=== PATIENT | female | born 1985 | race Caucasian/White ===

== ENCOUNTER 2017-05-24 17:43 | Inpatient (IN) | payer MEDICAID, OTHER ==
[~2017-05-24] VITALS: Ht 170.2 cm; Wt 106.8 kg
[2017-05-24 20:20] VITALS: BP 111/66
[2017-05-24] MEDS ORDERED: NS IV 1000 ML 1,000 ML ONE (21:07)
[2017-05-24] MEDS: NS IV 1000 ML 1,000 ML IV SCH (21:43)
[2017-05-24] MEDS: CLINDAMYCIN INJECTION 600 MG in NS (IVPB) 50 ML IV SCH (21:43)
[2017-05-24] MEDS: ACETAMINOPHEN 500 MG TAB (TYLENOL) PO PRN (21:52)
[2017-05-25 00:28] VITALS: BP 106/50
[2017-05-25 04:20] VITALS: BP 102/56
[2017-05-25] MEDS: CLINDAMYCIN INJECTION 600 MG in NS (IVPB) 50 ML IV SCH ×3 (05:49→21:27)
[2017-05-25 06:00] LABS: BASOPHILS % (AUTO) 0 % (0-10); EOSINOPHILS # (AUTO) 0.1 10^3/uL (0.0-0.3); EOSINOPHILS % (AUTO) 2 % (0-10); LYMPHOCYTES # (AUTO) 1.5 X 10^3 (1.0-4.0); LYMPHOCYTES % (AUTO) 19 % (12-44); MEAN CORPUSCULAR HEMOGLOBIN 30 PG (25-34); MEAN CORPUSCULAR HGB CONC 34 G/DL (32-36); MEAN CORPUSCULAR VOLUME 88 FL (80-99); MEAN PLATELET VOLUME 9.7 FL (7.4-10.4); MONOCYTES # (AUTO) 0.6 X 10^3 (0.0-1.0); MONOCYTES % (AUTO) 7 % (0-12); NEUTROPHILS # (AUTO) 5.7 X 10^3 (1.8-7.8); NEUTROPHILS % (AUTO) 72 % (42-75); PLATELET COUNT 256 10^3/uL (130-400); RED BLOOD COUNT 3.82 10^6/uL (4.35-5.85); RED CELL DISTRIBUTION WIDTH 13.2 % (10.0-14.5); WHITE BLOOD COUNT 7.9 10^3/uL (4.3-11.0)
[2017-05-25 06:04] LABS: ANION GAP 11 MMOL/L (5-14); BLOOD UREA NITROGEN 8 MG/DL (7-18); BUN/CREATININE RATIO 12; CALCIUM 8.7 MG/DL (8.5-10.1); CARBON DIOXIDE 19 MMOL/L (21-32); CHLORIDE 108 MMOL/L (98-107); CREATININE SERUM 0.66 MG/DL (0.60-1.30); GFR ESTIMATED > 60; GLUCOSE 109 MG/DL (70-105); POTASSIUM 3.4 MMOL/L (3.6-5.0); SODIUM 138 MMOL/L (135-145)
[2017-05-25] MEDS ORDERED: CATHETER FLUSH 10 ML SYR IV PRN (07:00)
[2017-05-25 08:23] VITALS: BP 101/64
--- NOTE | 2017-05-25 09:17 | Consultation ---
History of Present Illness History of Present Illness Patient Consulted On(arielle/time) 05/25/17 09:09 Date Seen by Provider: May 25, 2017 Time Seen by Provider: 08:15 Reason for Visit: bilateral lower extremity lymphedema, right lower extremity cellulitis History of Present Illness This 32-year-old is approximately 17 weeks and 1 day gestation and admitted to the emergency department last night for suspected cellulitis of the right lower extremity. The patient has a history of lymphedema of unexplained origin since age 14 that gets significantly worse with . The patient has had 4 previous successful pregnancies and one spontaneous miscarriage. All of her children were born vaginally and all pregnancies resulted in worsening lymphedema but no complications otherwise. This morning she has no concerns about the . She reports she can feel minor movements. She denies any cramping bleeding or spotting. She denies any morning sickness. Allergies and Home Medications Allergies Coded Allergies: Penicillins (Verified Allergy, Unknown, 05/24/17) Sulfa (Sulfonamide Antibiotics) (Verified Allergy, Unknown, 05/24/17) cefaclor (Verified Allergy, Unknown, 05/24/17) Past Tmcfqis-Yvupga-Txpdgw Hx Patient Social History Alcohol Use: Denies Use Recreational Drug Use: No Smoking Status: Current Everyday Smoker Type Used: Cigarettes Recent Foreign Travel: No Contact w/Someone Who Travel: No Recent Infectious Disease Expo: No Seasonal Allergies Seasonal Allergies: No Surgeries History of Surgeries: Yes (CLEFT PALATE REPAIR, RIGHT EAR DRUM PATCH, LEFT EAR TUBES, TONSILLECTOMY) Respiratory History of Respiratory Disorde: Yes Respiratory Disorders: Pneumonia Cardiovascular History of Cardiac Disorders: No Neurological History of Neurological Disord: No Reproductive System : Yes Female Reproductive Disorders: Denies Genitourinary History of Genitourinary Disor: No Gastrointestinal History of Gastrointestinal Di: No Musculoskeletal History of Musculoskeletal Dis: No Endocrine History of Endocrine Disorders: No HEENT History of HEENT Disorders: Yes Loss of Vision: Left Hearing Impairment: Hard of Hearing Cancer History of Cancer: No Psychosocial History of Psychiatric Problem: No Integumentary History of Skin or Integumenta: Yes (cellulitis/ lymphedema) Blood Transfusions History of Blood Disorders: No Family Medical History Family Medial History: Patient reports no known family medical history. Review of Systems-General Constitutional: see HPI, No diaphoresis, No malaise EENTM: see HPI Respiratory: see HPI, No orthopnea, No phlegm, No stridor Cardiovascular: see HPI Gastrointestinal: see HPI Genitourinary: see HPI : Yes Expected Date of Delivery: Nov 01, 2017 Musculoskeletal: see HPI Skin: see HPI Psychiatric/Neurological: See HPI All Other Systems Reviewed Negative Unless Noted: Yes (Negative excepted noted.) Physical Exam-General Problems Physical Exam Vital Signs Vital Sign - Last 12Hours 05/24/17 20:20 Temp 98.8 Pulse 92 Resp 18 B/P (MAP) 111/66 Pulse Ox 97 O2 Delivery Room Air Capillary Refill : General Appearance: WD/WN HEENT: PERRL/EOMI Cardiovascular: regular rate, rhythm Gastrointestinal: normal bowel sounds, non tender Lymphatic: other (severe lower extremity lymphedema noted bilaterally with some redness in the right lower extremity that is warm to touch. All of this is localized below the knee. 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
[2017-05-25] MEDS ORDERED: PREN-142 PO (11:05)
--- NOTE | 2017-05-25 11:20 | Diagnostic Imaging Report ---
INDICATION: survey. TECHNIQUE: Multiple real-time grayscale images were obtained over the gravid uterus. COMPARISON: None FINDINGS: heart rate is 143 beats per minutes. The placenta is posterior. There is no placenta previa. The cervix is 4.3 cm in length and appears closed. The upper and mid spine are seen. The lower spine is not well seen due to position. There is no ventriculomegaly. The posterior fossa appears unremarkable. The stomach and the bladder are seen. The cord insertion, three-vessel cord, the four-chamber view, and the kidneys are not well seen due to position. Biometrical measurements are as follows: Biparietal 4.09 cm, age 18 weeks 3 days. Head circumference 14.99 cm, age 18 weeks 1 days. Abdominal circumference 12.35 cm, age 18 weeks 0 days. Femur length 2.73 cm, age 18 weeks 3 days. Sonographic estimate age: 18 weeks 2 days. This compares to gestational age of 17 weeks and 1 day based on provided INDU of 11/01/2017, within normal limits. Sonographic estimated date of delivery: 10-24-17. Estimated Weight: 226 gm (+/- 33 gm). LMP percentile: 95%. heart rate: 143 beats per minute. number: 1 of 1. IMPRESSION: Followup within two weeks is suggested to reevaluate the structures not well seen including the four-chamber view, the kidneys, cord insertion, three-vessel cord, and the lower spine. Dictated by: Dictated on workstation # [id number]
[2017-05-25 12:36] VITALS: BP 127/72
--- NOTE | 2017-05-25 12:52 | History & Physical-Hospitalist ---
HPI History of Present Illness: HPI/Chief Complaint The patient is a 32-year-old white female referred to the hospitalist service after a phone call to me from her primary care physician. She reports that she developed lymphedema of her lower extremities at age 14. She has had multiple episodes of lymphangitis. She had been hospitalized in [place] in January with lymphangitis and was found to be at that time. She has been 6 times and has 4 living children. Each brought at least one episode of lymphangitis that required treatment. She and her significant other had moved back to the area recently. She reports that she has always done well with occupational therapy for reduction of lymphedema and then use of compression stockings. She states that welfare has been unwilling to pay for either of these modalities as they considered it to be a cosmetic issue. Her left leg has been much more afflicted than the right. The right leg however is the painful red leg this time. Source: patient Exam Limitations: no limitations Date Seen 05/25/17 Time Seen by Provider: 12:46 Attending Physician Rajan Perez MD PCP Torres Chance DO Referring Physician Date of Admission May 24, 2017 at 20:08 Home Medications & Allergies Home Medications Reviewed patient Home Medication Reconciliation Form Allergies Allergies Coded Allergies Penicillins (Verified Allergy, Unknown, 05/24/17) Sulfa (Sulfonamide Antibiotics) (Verified Allergy, Unknown, 05/24/17) cefaclor (Verified Allergy, Unknown, 05/24/17) Past Zujbupu-Ueellr-Pdoojn Hx Patient Social History Alcohol Use: Denies Use Recreational Drug Use: No Smoking Status: Current Everyday Smoker Type Used: Cigarettes Physical Abuse Screen: No Sexual Abuse: No Recent Foreign Travel: No Contact w/other who traveled: No Recent Infectious Disease Expo: No Seasonal Allergies Seasonal Allergies: No Surgeries Yes (CLEFT PALATE REPAIR, RIGHT EAR DRUM PATCH, LEFT EAR TUBES, TONSILLECTOMY) Respiratory Yes Cardiovascular No Neurological No Reproductive System : Yes Expected Date of Delivery: Nov 01, 2017 Female Reproductive Disorders: Denies Genitourinary No Gastrointestinal No Musculoskeletal No Endocrine History of Endocrine Disorders: No HEENT History of HEENT Disorders: Yes Loss of Vision: Left Hearing Impairment: Hard of Hearing Cancer No Psychosocial History of Psychiatric Problem: No Integumentary History of Skin or Integumenta: Yes (cellulitis/ lymphedema) Blood Transfusions History of Blood Disorders: No Family Medical History Family Hx: Patient reports no known family medical history. Review of Systems Constitutional: see HPI EENTM: no symptoms reported Respiratory: no symptoms reported Cardiovascular: no symptoms reported Gastrointestinal: no symptoms reported Genitourinary: no symptoms reported Musculoskeletal: no symptoms reported Skin: see HPI Physical Exam Physical Exam Vital Signs Vital Sign - Last 12Hours 05/24/17 20:20 Temp 98.8 Pulse 92 Resp 18 B/P (MAP) 111/66 Pulse Ox 97 O2 Delivery Room Air Capillary Refill : General Appearance: Mild Distress Eyes: Bilateral Eye Normal Inspection HEENT: Normal ENT Inspection Neck: Full Range of Motion Respiratory: Chest Non Tender, Lungs Clear, Normal Breath Sounds, No Accessory Muscle Use, No Respiratory Distress Cardiovascular: Regular Rate, Rhythm, No Edema, No Gallop, No JVD, No Murmur, Normal Peripheral Pulses Comments The left leg below the knee is extremely swollen. There is a pendulous portion of the edema above the ankle. The leg does not appear to be red or warm. The right leg is much more normal in size. There is erythema and tenderness. This was marked with an indelible marker last night and the erythema is receding from the marker lines. Results Results/Procedures Lab Laboratory Tests 05/25/17 05:25 Assessment/Plan Admission Diagnosis Chronic lymphedema. 2.recurrent lymphangitis. 3.17 weeks' . Assessment and Plan IV antibiotics. She has many reported allergies and it would appear that clindamycin is the best choice at this time. Occupational therapy consult for advice on lymphedema management. protective services social worker consult as a patient advocate with welfare Clinical Quality Measures DVT/VTE Risk/Contraindication: Risk Factor Score Per Nursin RFS Level Per Nursing on Admit: 4+=Very High RAJAN PEREZ MD May 25, 2017 12:52
[2017-05-25 15:45] VITALS: BP 120/70
[2017-05-25] MEDS: NS IV 1000 ML 1,000 ML IV SCH (16:25)
--- NOTE | 2017-05-25 17:46 | Occ Therapy Progress Note ---
Therapy Progress Note Order received for OT services in reference to cellulitis/lymphedema about lower extremity. Due to infection, compression not appropriate at this time. We will need to resolve the infection then consider compression in some form. Will follow patient tomorrow. Thank you for this referral. TRACEY Hernandez/L 05/25/2017 5:45 pm DANIELLE MCCAIN OT May 25, 2017 17:46
[2017-05-25 19:48] VITALS: BP 107/63
[2017-05-25] MEDS: ACETAMINOPHEN 500 MG TAB (TYLENOL) PO PRN (21:28)
[2017-05-26] VITALS: BP 133/62
[2017-05-26 04:00] VITALS: BP_SYST 118; BP_SYST 128; BP_DIAS 56; BP_DIAS 65
[2017-05-26] MEDS: CLINDAMYCIN INJECTION 600 MG in NS (IVPB) 50 ML IV SCH (05:31)
[2017-05-26 08:48] VITALS: BP 132/82
[2017-05-26] MEDS ORDERED: CLIN300C11 PO (10:52)
--- NOTE | 2017-05-26 11:12 | Discharge Summary-Hospitalist ---
Diagnosis/Chief Complaint Date of Admission May 24, 2017 at 20:08 Date of Discharge Discharge Date: May 26, 2017 Admission Diagnosis Chronic lymphedema. 2.recurrent lymphangitis. 3.17 weeks' . Discharge Diagnosis Chart Review: No fever Vitals stable Dr. Partida Review: Pt states she has had lymphedema since she was 14yo Pt is with her 6th child. 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 He states that her left leg was completely red when she was admitted Pt states she would like to DC Pt was informed that we will start her with some wide VERONICA wraps to help with the lymphedema during her . Pt states that she was two weeks away from receiving her stockings and Medicare told her they would not pay. Pt confirms pharmacy as [facility] in [place], [place] [employer], [place], improved right leg no longer even pink Plan: UDS Wide VERONICA wraps with Curlex Follow up with Dr. Enriquez tomorrow 05/27 Scribed by Lisa Rizzo under the direct supervision of Dr. Jackson. (1) Cellulitis and abscess of right lower extremity Status: Acute (2) Lymphedema of extremity Status: Chronic (3) Status: Acute Discharge Summary Discharge Physical Examination Allergies: Coded Allergies: Penicillins (Verified Allergy, Unknown, 05/24/17) Sulfa (Sulfonamide Antibiotics) (Verified Allergy, Unknown, 05/24/17) cefaclor (Verified Allergy, Unknown, 05/24/17) Vitals & I&Os Vital Signs Date Time Temp Pulse Resp B/P (MAP) Pulse Ox O2 Delivery O2 Flow Rate FiO2 05/26/17 08:48 98.4 74 20 132/82 99 Room Air Hospital Course Hospital course: Patient had a brief hospital course she was admitted due to severe right lower extremity cellulitis with complicated chronic lymphedema that is complicated even further due to currently that responded well to clindamycin IV she will be placed on compression therapy along with oral antibiotics with close follow-up with her OB tomorrow and will monitor closely in the meantime. Labs (last 24 hrs) Laboratory Tests 05/25/17 14:13: Glucometer 127H 05/25/17 19:57: Glucometer 133H 05/26/17 05:47: Glucometer 102 05/26/17 10:06: Glucometer 99 05/26/17 11:10: Urine Opiates Screen NEGATIVE, Urine Oxycodone Screen NEGATIVE, Urine Methadone Screen NEGATIVE, Urine Propoxyphene Screen NEGATIVE, Urine Barbiturates Screen NEGATIVE, Ur Tricyclic Antidepressants Screen NEGATIVE, Urine Phencyclidine Screen NEGATIVE, Urine Amphetamines Screen NEGATIVE, Urine Methamphetamines Screen NEGATIVE, Urine Benzodiazepines Screen NEGATIVE, Urine Cocaine Screen NEGATIVE, Urine Cannabinoids Screen NEGATIVE Pending Labs Laboratory Tests 05/26/17 05:47: Glucometer 102 05/26/17 10:06: Glucometer 99 05/26/17 11:10: Urine Opiates Screen NEGATIVE, Urine Oxycodone Screen NEGATIVE, Urine Methadone Screen NEGATIVE, Urine Propoxyphene Screen NEGATIVE, Urine Barbiturates Screen NEGATIVE, Ur Tricyclic Antidepressants Screen NEGATIVE, Urine Phencyclidine Screen NEGATIVE, Urine Amphetamines Screen NEGATIVE, Urine Methamphetamines Screen NEGATIVE, Urine Benzodiazepines Screen NEGATIVE, Urine Cocaine Screen NEGATIVE, Urine Cannabinoids Screen NEGATIVE Discharge Home Medications: Active Scripts Active Clindamycin HCl 300 Mg Capsule 300 Mg PO TID Reported Vitamin Tablet ( Vit No.124/Iron/FA) 1 Each Tablet 1 Each PO DAILY Instructions to patient/family Please see electronic discharge instructions given to patient. Clinical Quality Measures DVT/VTE Risk/Contraindication: Risk Factor Score Per Nursin RFS Level Per Nursing on Admit: 4+=Very High Problem Qualifiers (1) : Weeks of gestation: 30 weeks Qualified Codes: Z3A.30 - 30 weeks gestation of AJ JACKSON DO May 26, 2017 11:11
[2017-05-26 11:25] VITALS: BP 132/82
[2017-05-27] MEDS ORDERED: PRENATAL VITAMIN 1 EA TAB PO SCH (07:00)
== END 2017-05-26 11:25 | disposition home or self-care (01) | DRG 781 ==
LOC: 4TH 20:08
PROVIDERS: ADMIT Internal Medicine; ATTEND Internal Medicine
DX: O99.712 Diseases of the skin and subcutaneous tissue complicating pregnancy, second trimester (principal); L03.115 Cellulitis of right lower limb; I89.0 Lymphedema, not elsewhere classified; O99.332 Smoking (tobacco) complicating pregnancy, second trimester; F17.210 Nicotine dependence, cigarettes, uncomplicated; Q87.0 Congenital malformation syndromes predominantly affecting facial appearance; Z3A.17 17 weeks gestation of pregnancy
CPT/HCPCS: 36415; 76805; 80048; 80306; 82962; 85025

== ENCOUNTER 2017-06-05 18:11 | Emergency (ER) | payer SELFPAY ==
[~2017-06-05] VITALS: Ht 170.2 cm; Wt 106.8 kg
[~2017-06-05 18:11] MED LIST: CLIN300C11 PO; PREN-142 PO
--- NOTE | 2017-06-05 20:25 | ED Integumentary General ---
General Chief Complaint: Skin/Wound Problems Stated Complaint: POSSIBLE CELLULITIS Nursing Triage Note: Patient reports R leg redness starting this morning. patient reports was recenlty discharged with cellulitis Source: patient Exam Limitations: no limitations History of Present Illness Time seen by provider: 20:25 Initial Comments 32-year-old female patient presents to the emergency department with complaints of possible cellulitis to the right lower extremity. Patient is 18 weeks . Patient was admitted to [facility] on 05/24/17 for similar complaints. 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 Patient reports history of lymphedema since the age of 14. Patient is a A2 female. Reports each brought on at least one episode of lymphangitis which required treatment. Patient reports finishing her clindamycin on 05/30/17. Denies fever or chills. Timing/Duration: this morning, getting worse Location: extremities (right lower extremity) Possible Cause: no cause identified Modifying Factors: worse with other (worse with palpation and scratching) Allergies and Home Medications Allergies Coded Allergies: Penicillins (Verified Allergy, Unknown, 05/24/17) Sulfa (Sulfonamide Antibiotics) (Verified Allergy, Unknown, 05/24/17) cefaclor (Verified Allergy, Unknown, 05/24/17) Home Medications Clindamycin HCl 300 Mg Capsule, 300 MG PO TID, #15 Prescribed by: AJ JACKSON on 05/26/17 1052 Clindamycin HCl 300 Mg Capsule, 300 MG PO QID, #28 Ref 0 Prescribed by: SIMEON BATES on 06/05/17 2146 Vit No.124/Iron/FA 1 Each Tablet, 1 EACH PO DAILY, (Reported) Constitutional: No chills, No fever, No malaise Respiratory: No cough, No dyspnea on exertion, No short of breath Cardiovascular: No chest pain, No palpitations, No syncope Gastrointestinal: No abdominal pain, No constipation, No diarrhea, No nausea, No vomiting Genitourinary: No decreased output, No discharge, No dysuria, No frequency, No hematuria, No pain, No other (denies vaginal bleeding) : Yes Musculoskeletal: see HPI Skin: see HPI Psychiatric/Neurological: No Symptoms Reported All Other Systems Reviewed Negative Unless Noted: Yes (Negative excepted noted.) Past Urjebgx-Hjwdyb-Pcqbmc Hx Patient Social History Alcohol Use: Denies Use Recreational Drug Use: No Smoking Status: Current Everyday Smoker Type Used: Cigarettes Recent Foreign Travel: No Contact w/Someone Who Travel: No Recent Infectious Disease Expo: No Physical Abuse: No Sexual Abuse: No Seasonal Allergies Seasonal Allergies: No Surgeries History of Surgeries: Yes (CLEFT PALATE REPAIR, RIGHT EAR DRUM PATCH, LEFT EAR TUBES, TONSILLECTOMY) Respiratory History of Respiratory Disorde: Yes Respiratory Disorders: Pneumonia Cardiovascular History of Cardiac Disorders: No Neurological History of Neurological Disord: No Reproductive System : Yes Hx : 6 Hx Para: 4 Hx Total # of Abortions (Spona: 2 Female Reproductive Disorders: Denies Genitourinary History of Genitourinary Disor: No Gastrointestinal History of Gastrointestinal Di: No Musculoskeletal History of Musculoskeletal Dis: No Endocrine History of Endocrine Disorders: No HEENT History of HEENT Disorders: Yes Loss of Vision: Left Hearing Impairment: Hard of Hearing Cancer History of Cancer: No Psychosocial History of Psychiatric Problem: No Suicide Risk Score: 0 Integumentary History of Skin or Integumenta: Yes (cellulitis/ lymphedema) Blood Transfusions History of Blood Disorders: No Reviewed Nursing Assessment Reviewed/Agree w Nursing PMH: Yes Family Medical History Significant Family History: No Pertinent Family Hx Family Medial History: Patient reports no known family medical history. Physical Exam Vital Signs Vital Sign - Last 12Hours 06/05/17 19:25 Temp 98.2 Pulse 80 Resp 18 B/P (MAP) 118/61 Pulse Ox 99 Capillary Refill : Less Than 3 Seconds General Appearance: WD/WN, no apparent distress HEENT: PERRL/EOMI, pharynx normal Neck: supple, normal inspection Cardiovascular: normal peripheral pulses, regular rate, rhythm, no murmur Respiratory: lungs clear, normal breath sounds, no respiratory distress, no accessory muscle use Gastrointestinal: normal bowel sounds, non tender, soft, No distended Extremities: no calf tenderness, normal capillary refill, other (lymphedema noted of the bilateral lower extremities. Right lower extremity shows slightly raised, erythematous macules from the knee to the mid dorsal foot. No open wounds or drainage noted.) Neurologic/Psychiatric: alert, normal mood/affect, oriented x 3 Skin: normal color, warm/dry, rash (lymphedema noted of the bilateral lower extremities. Right lower extremity shows slightly raised, erythematous macules from the knee to the mid dorsal foot. No open wounds or drainage noted.) Skin Problem Location: lower extremities Skin Problem Character: rash, other (lymphedema noted of the bilateral lower extremities. Right lower extremity shows slightly raised, erythematous macules from the knee to the mid dorsal foot. No open wounds or drainage noted.) Progress/Results/Core Measures Results/Orders Lab Results Laboratory Tests Test 06/05/17 20:57 Range/Units White Blood Count 13.0 H 4.3-11.0 10^3/uL Red Blood Count 4.17 L 4.35-5.85 10^6/uL Hemoglobin 12.2 11.5-16.0 G/DL Hematocrit 37 35-52 % Mean Corpuscular Volume 88 80-99 FL Mean Corpuscular Hemoglobin 29 25-34 PG Mean Corpuscular Hemoglobin Concent 33 32-36 G/DL Red Cell Distribution Width 13.3 10.0-14.5 % Platelet Count 332 130-400 10^3/uL Mean Platelet Volume 9.6 7.4-10.4 FL Neutrophils (%) (Auto) 72 42-75 % Lymphocytes (%) (Auto) 20 12-44 % Monocytes (%) (Auto) 6 0-12 % Eosinophils (%) (Auto) 2 0-10 % Basophils (%) (Auto) 0 0-10 % Neutrophils # (Auto) 9.3 H 1.8-7.8 X 10^3 Lymphocytes # (Auto) 2.6 1.0-4.0 X 10^3 Monocytes # (Auto) 0.8 0.0-1.0 X 10^3 Eosinophils # (Auto) 0.3 0.0-0.3 10^3/uL Basophils # (Auto) 0.0 0.0-0.1 10^3/uL Sodium Level 136 135-145 MMOL/L Potassium Level 3.5 L 3.6-5.0 MMOL/L Chloride Level 106 98-107 MMOL/L Carbon Dioxide Level 19 L 21-32 MMOL/L Anion Gap 11 5-14 MMOL/L Blood Urea Nitrogen 7 7-18 MG/DL Creatinine 0.68 0.60-1.30 MG/DL Estimat Glomerular Filtration Rate > 60 BUN/Creatinine Ratio 10 Glucose Level 78 70-105 MG/DL Calcium Level 9.0 8.5-10.1 MG/DL Total Bilirubin 0.2 0.1-1.0 MG/DL Aspartate Amino Transf (AST/SGOT) 6 5-34 U/L Alanine Aminotransferase (ALT/SGPT) 6 0-55 U/L Alkaline Phosphatase 62 40-136 U/L Total Protein 7.0 6.4-8.2 GM/DL Albumin 3.6 3.2-4.5 GM/DL My Orders Orders - SIMEON BATES Cbc With Automated Diff (06/05/17 20:42) Comprehensive Metabolic Panel (06/05/17 20:42) Clindamycin Capsule (Cleocin Capsule) (06/05/17 21:45) Rx-Clindamycin Capsule (Rx-Cleocin Capsu (06/05/17 21:58) Rx-Clindamycin Capsule (Rx-Cleocin Capsu (06/05/17 21:52) Medications Given in ED Current Medications Medications Dose Ordered Sig/Trever Route Start Time Stop Time Status Last Admin Dose Admin Clindamycin HCl 600 mg ONCE ONCE PO 06/05/17 21:45 06/05/17 21:46 DC 06/05/17 21:49 600 MG Vital Signs/I&O Vital Sign - Last 12Hours 06/05/17 06/05/17 19:25 21:51 Temp 98.2 98.2 Pulse 80 80 Resp 18 18 B/P (MAP) 118/61 Pulse Ox 99 99 Blood Pressure Mean: 80 Departure Communication (Admissions) Progress Notes 2140 patient case D/W Dr. Quintanilla with recommendations for discharge with clindamycin. Patient given a loading dose of clindamycin 600 mg 1 by mouth. Patient follow-up Wednesday with Dr. Chance for recheck. Patient call Wednesday morning for appointment time. Patient case discussed with Dr. Kennedy, he agrees with the plan of care. Impression Impression: Primary Impression: Cellulitis Qualified Codes: L03.115 - Cellulitis of right lower limb Additional Impressions: Lymphedema of extremity with 18 completed weeks gestation Disposition: 01 HOME, SELF-CARE Condition: Improved Departure-Patient Inst. Decision time for Depature: 21:46 Referrals: GAB CHANCE DO (PCP) Primary Care Physician EN NGUYEN (Family) Primary Care Physician Patient Instructions: Cellulitis (Skin Infection), Adult (DC) Add. Discharge Instructions: All discharge instructions reviewed with patient and/or family. Voiced understanding. Medications as instructed. Continue usual home medications. Elevate the lower extremities above the level of the heart. Follow-up with Dr. Chance early this week for recheck, call first thing Wednesday morning for appointment time. Return to the emergency department for worsened pain, redness , fever, swelling, open wounds, or any other concerns. Scripts Clindamycin HCl (Clindamycin HCl) 300 Mg Capsule 300 MG PO QID, #28 CAP 0 Refills Prov: SIMEON BATES 06/05/17 SIMEON BATES Jun 05, 2017 20:25
[2017-06-05 21:03] LABS: BASOPHILS % (AUTO) 0 % (0-10); EOSINOPHILS # (AUTO) 0.3 10^3/uL (0.0-0.3); EOSINOPHILS % (AUTO) 2 % (0-10); LYMPHOCYTES # (AUTO) 2.6 X 10^3 (1.0-4.0); LYMPHOCYTES % (AUTO) 20 % (12-44); MEAN CORPUSCULAR HEMOGLOBIN 29 PG (25-34); MEAN CORPUSCULAR HGB CONC 33 G/DL (32-36); MEAN CORPUSCULAR VOLUME 88 FL (80-99); MEAN PLATELET VOLUME 9.6 FL (7.4-10.4); MONOCYTES # (AUTO) 0.8 X 10^3 (0.0-1.0); MONOCYTES % (AUTO) 6 % (0-12); NEUTROPHILS # (AUTO) 9.3 X 10^3 (1.8-7.8); NEUTROPHILS % (AUTO) 72 % (42-75); PLATELET COUNT 332 10^3/uL (130-400); RED BLOOD COUNT 4.17 10^6/uL (4.35-5.85); RED CELL DISTRIBUTION WIDTH 13.3 % (10.0-14.5)
[2017-06-05 21:31] LABS: ALANINE AMINOTRANSFERASE 6 U/L (0-55); ALBUMIN 3.6 GM/DL (3.2-4.5); ANION GAP 11 MMOL/L (5-14); ASPARTATE AMINO TRANSFERASE 6 U/L (5-34); BILIRUBIN,TOTAL 0.2 MG/DL (0.1-1.0); BLOOD UREA NITROGEN 7 MG/DL (7-18); BUN/CREATININE RATIO 10; CARBON DIOXIDE 19 MMOL/L (21-32); CHLORIDE 106 MMOL/L (98-107); CREATININE SERUM 0.68 MG/DL (0.60-1.30); GFR ESTIMATED > 60; GLUCOSE 78 MG/DL (70-105); POTASSIUM 3.5 MMOL/L (3.6-5.0); SODIUM 136 MMOL/L (135-145)
[2017-06-05] MEDS ORDERED: CLINDAMYCIN 150 MG (CLEOCIN) CAP PO ONE (21:45)
[2017-06-05] MEDS ORDERED: CLIN300C11 PO (21:46)
[2017-06-05 21:51] VITALS: BP 118/61
[2017-06-05] MEDS ORDERED: RX-CLINDAMYCIN 150 MG (CLEOCIN) CAP PPK#4 PO ONE (21:52)
[2017-06-05] MEDS ORDERED: RX-CLINDAMYCIN 150 MG (CLEOCIN) CAP PPK#4 PO STA (21:58)
== END 2017-06-05 21:49 | disposition home or self-care (01) ==
LOC: EDUNIT# 18:11 → ER 18:12
DX: O99.712 Diseases of the skin and subcutaneous tissue complicating pregnancy, second trimester (principal); L03.115 Cellulitis of right lower limb; O99.411 Diseases of the circulatory system complicating pregnancy, first trimester; I89.0 Lymphedema, not elsewhere classified; O99.332 Smoking (tobacco) complicating pregnancy, second trimester; F17.210 Nicotine dependence, cigarettes, uncomplicated; Z87.01 Personal history of pneumonia (recurrent); Z90.89 Acquired absence of other organs; Z96.22 Myringotomy tube(s) status
CPT/HCPCS: 36415; 80053; 85025; 99283

== ENCOUNTER 2017-09-27 04:23 | Outpatient (CLI) | payer MEDICAID ==
[~2017-09-27] VITALS: Ht 170.2 cm; Wt 105.4 kg
[2017-09-27 05:00] VITALS: BP 123/68
[2017-09-27 05:06] LABS: BILIRUBIN,URINE NEGATIVE (NEGATIVE); CLARITY,URINE CLEAR; COLOR,URINE YELLOW; GLUCOSE, URINE (UA) NEGATIVE (NEGATIVE); KETONES,URINE NEGATIVE (NEGATIVE); LEUKOCYTE ESTERASE ,URINE 1+ (NEGATIVE); NITRITE,URINE NEGATIVE (NEGATIVE); PH,URINE 6 (5-9); PROTEIN,URINE NEGATIVE (NEGATIVE); UROBILINOGEN,URINE NORMAL (NORMAL)
[2017-09-27 05:18] LABS: BACTERIA,URINE MODERATE /HPF; WBC,URINE 0-2 /HPF
[2017-09-27 05:24] LABS: AMPHETAMINE SCREEN, URINE NEGATIVE (NEGATIVE); BARBITURATE SCREEN URINE NEGATIVE (NEGATIVE); BENZODIAZEPINES SCREEN URINE NEGATIVE (NEGATIVE); CANNABINOID SCREEN, URINE NEGATIVE (NEGATIVE); COCAINE SCREEN URINE NEGATIVE (NEGATIVE); METHADONE STAT NEGATIVE (NEGATIVE); METHAMPHETAMINE SCREEN URINE S NEGATIVE (NEGATIVE); OPIATE SCREEN URINE NEGATIVE (NEGATIVE); OXYCODONE STAT NEGATIVE (NEGATIVE); PROPOXYPHENE STAT NEGATIVE (NEGATIVE); TRICYCLIC ANTIDEPRESSANTS SCRE NEGATIVE (NEGATIVE)
[2017-09-27 06:00] VITALS: BP 132/78
[2017-09-27] MEDS ORDERED: morphine INJ 4 MG/ML 1 ML (VIAL/SYRINGE) ONE (06:37)
--- NOTE | 2017-09-27 06:47 | History & Physical-OB ---
OB - Chief Complaint & HPI Date/Time Date of Admission: Date of Admission: Chief Complaint/History Hx : 6 Hx Para: 4 Expected Date of Delivery: Nov 01, 2017 Gestational Age in Weeks: 39 Allergies and Home Medications Allergies Coded Allergies: Penicillins (Verified Allergy, Unknown, 05/24/17) Sulfa (Sulfonamide Antibiotics) (Verified Allergy, Unknown, 05/24/17) cefaclor (Verified Allergy, Unknown, 05/24/17) Home Medications Clindamycin HCl 300 Mg Capsule, 300 MG PO TID, #15 Prescribed by: AJ JACKSON on 05/26/17 1052 Clindamycin HCl 300 Mg Capsule, 300 MG PO QID, #28 Ref 0 Prescribed by: SIMEON BATES on 06/05/17 2146 Vit No.124/Iron/FA 1 Each Tablet, 1 EACH PO DAILY, (Reported) OB - History Hx of Present Care: Yes Obstetrical History Hx : 6 Hx Para: 4 Hx Total # of Abortions (Spona: 1 Social History/Family History Recent Infectious Disease Expo: No OB - Admission Exam Labs Laboratory Tests Test 09/27/17 04:45 09/27/17 04:52 Range/Units Urine Color YELLOW Urine Clarity CLEAR Urine pH 6 5-9 Urine Specific [place] 1.020 1.016-1.022 Urine Protein NEGATIVE NEGATIVE Urine Glucose (UA) NEGATIVE NEGATIVE Urine Ketones NEGATIVE NEGATIVE Urine Nitrite NEGATIVE NEGATIVE Urine Bilirubin NEGATIVE NEGATIVE Urine Urobilinogen NORMAL NORMAL MG/DL Urine Leukocyte Esterase 1+ H NEGATIVE Urine RBC (Auto) NEGATIVE NEGATIVE Urine RBC NONE /HPF Urine WBC 0-2 /HPF Urine Squamous Epithelial Cells 10-25 H /HPF Urine Crystals NONE /LPF Urine Bacteria MODERATE H /HPF Urine Casts NONE /LPF Urine Mucus NEGATIVE /LPF Urine Culture Indicated NO Urine Opiates Screen NEGATIVE NEGATIVE Urine Oxycodone Screen NEGATIVE NEGATIVE Urine Methadone Screen NEGATIVE NEGATIVE Urine Propoxyphene Screen NEGATIVE NEGATIVE Urine Barbiturates Screen NEGATIVE NEGATIVE Ur Tricyclic Antidepressants Screen NEGATIVE NEGATIVE Urine Phencyclidine Screen NEGATIVE NEGATIVE Urine Amphetamines Screen NEGATIVE NEGATIVE Urine Methamphetamines Screen NEGATIVE NEGATIVE Urine Benzodiazepines Screen NEGATIVE NEGATIVE Urine Cocaine Screen NEGATIVE NEGATIVE Urine Cannabinoids Screen NEGATIVE NEGATIVE Glucometer 118 H 70-110 MG/DL REJI HARRISON DO Sep 27, 2017 06:47
[2017-09-27] MEDS ORDERED: morphine INJ 10 MG/ML 1ML (SYR OR VIAL) IVP ONE (07:00)
[2017-09-27] MEDS ORDERED: PROMETHAZINE/ CODEINE SYRUP 5 ML UDC PO PRN (07:00)
[2017-09-27 08:52] VITALS: BP 136/81
[2017-09-27] MEDS ORDERED: CODE118S2 PO (09:09)
--- NOTE | 2017-09-27 10:40 | Diagnostic Imaging Report ---
INDICATION: Gestational diabetes. TECHNIQUE: Multiple Real-time grayscale images were obtained over the gravid uterus. COMPARISON: 05/25/2017. FINDINGS: There is a single live fetus in a cephalic presentation. The placenta is to the right. No previa is seen. The amniotic fluid volume is at the lower limits of normal with an SOFYA of 7.4 cm. The heart rate is 125 BPM. No gross abnormality is seen. Note is made of a fat-containing anterior abdominal wall hernia. A biophysical profile was also performed. The biophysical profile score is 8 out of 8 points. Biometrical measurements are as follows: Biparietal 8.5 cm, age 34 weeks 2 days. Head circumference 30.86 cm, age 34 weeks 4 days. Abdominal circumference 31.61 cm, age 35 weeks 4 days. Femur length 6.67 cm, age 34 weeks 3 days. Sonographic estimate age: 34 weeks 5 days. Sonographic estimated date of delivery: 11/01/2017. Estimated Weight: 2558 gm (+/- 373 gm). LMP percentile: 45%. heart rate: 125 beats per minute. number: 1 of 1. IMPRESSION: Single live IUP of approximately 34-35 weeks gestational age showing normal interval growth when compared with the prior exam. The biophysical profile score is a normal 8 out of 8 points. Dictated by: Dictated on workstation # [id number]
--- NOTE | 2017-09-27 19:39 | Consultation ---
History of Present Illness History of Present Illness Patient Consulted On(arielle/time) 09/27/17 19:33 Date Seen by Provider: Sep 27, 2017 Time Seen by Provider: 06:45 History of Present Illness Consult requested by Dr. Harrison for hernia in 35 week female. Patient is a 32 year old female 35 weeks . She has been having abdominal pain at hernia since last night. Sharp pain no radiation of pain. Pain severe. Patient with hernia for 6 years but has always gone back in. She has had a cough the last 3 weeks and noticed the hernia getting bigger. She states she has had the flu and bronchitis over the last 3 weeks. She denies any n/v fever sweats chills shortness of breath or chest pain at this time. Allergies and Home Medications Allergies Coded Allergies: Penicillins (Verified Allergy, Unknown, 05/24/17) Sulfa (Sulfonamide Antibiotics) (Verified Allergy, Unknown, 05/24/17) cefaclor (Verified Allergy, Unknown, 05/24/17) Home Medications Vit No.124/Iron/FA 1 Each Tablet, 1 EACH PO DAILY, (Reported) Promethazine HCl/Codeine 118 Ml Syrup, 5 ML PO Q4H PRN for COUGH, #240 Prescribed by: REJI HARRISON on 09/27/17 0909 Past Zcrpepc-[id number]-Uvnijg Hx Patient Social History Smoking Status: Current Everyday Smoker Type Used: Cigarettes Recent Foreign Travel: No Contact w/Someone Who Travel: No Recent Infectious Disease Expo: No Physical Abuse Screen: No Sexual Abuse: No Seasonal Allergies Seasonal Allergies: No Surgeries History of Surgeries: Yes (CLEFT PALATE REPAIR, RIGHT EAR DRUM PATCH, LEFT EAR TUBES, TONSILLECTOMY) Respiratory History of Respiratory Disorde: Yes Respiratory Disorders: Pneumonia Cardiovascular History of Cardiac Disorders: No Neurological History of Neurological Disord: No Reproductive System Hx : 6 Hx Para: 4 Hx Total # of Abortions (Spona: 1 Female Reproductive Disorders: Denies Genitourinary History of Genitourinary Disor: No Gastrointestinal History of Gastrointestinal Di: No Musculoskeletal History of Musculoskeletal Dis: No Endocrine History of Endocrine Disorders: No HEENT History of HEENT Disorders: Yes Loss of Vision: Left Hearing Impairment: Hard of Hearing Cancer History of Cancer: No Psychosocial History of Psychiatric Problem: No Integumentary History of Skin or Integumenta: Yes (cellulitis/ lymphedema) Blood Transfusions History of Blood Disorders: No Family Medical History Significant Family History: No Pertinent Family Hx Family Medial History: Patient reports no known family medical history. Review of Systems-General Constitutional: see HPI EENTM: no symptoms reported Respiratory: see HPI, cough Cardiovascular: no symptoms reported Gastrointestinal: see HPI Genitourinary: no symptoms reported Musculoskeletal: no symptoms reported Skin: no symptoms reported Psychiatric/Neurological: No Symptoms Reported Physical Exam-General Problems Physical Exam Vital Signs Vital Sign - Last 12Hours 09/27/17 05:00 Temp 98.4 Pulse 75 Resp 18 B/P (MAP) 123/68 (86) Capillary Refill : General Appearance: mild distress HEENT: PERRL/EOMI Neck: supple Respiratory: no respiratory distress, no accessory muscle use Cardiovascular: regular rate, rhythm Gastrointestinal: hernia (umbilcal, tender to touch, with manipulation hernia was able to be reduced) Rectal: deferred Back: normal inspection Extremities: non-tender, normal inspection Neurologic/Psychiatric: alert, normal mood/affect, oriented x 3 Skin: warm/dry (multiple areas on upper extremities scabbed appears to be from picking) Lymphatic: no adenopathy Data Review Labs Laboratory Tests 09/27/17 04:45: Urine Color YELLOW, Urine Clarity CLEAR, Urine pH 6, Urine Specific [place] 1.020, Urine Protein NEGATIVE, Urine Glucose (UA) NEGATIVE, Urine Ketones NEGATIVE, Urine Nitrite NEGATIVE, Urine Bilirubin NEGATIVE, Urine Urobilinogen NORMAL, Urine Leukocyte Esterase 1+H, Urine RBC (Auto) NEGATIVE, Urine RBC NONE , Urine WBC 0-2, Urine Squamous Epithelial Cells 10-25H, Urine Crystals NONE, Urine Bacteria MODERATEH, Urine Casts NONE, Urine Mucus NEGATIVE, Urine Culture Indicated NO, Urine Opiates Screen NEGATIVE, Urine Oxycodone Screen NEGATIVE, Urine Methadone Screen NEGATIVE, Urine Propoxyphene Screen NEGATIVE, Urine Barbiturates Screen NEGATIVE, Ur Tricyclic Antidepressants Screen NEGATIVE, Urine Phencyclidine Screen NEGATIVE, Urine Amphetamines Screen NEGATIVE, Urine Methamphetamines Screen NEGATIVE, Urine Benzodiazepines Screen NEGATIVE, Urine Cocaine Screen NEGATIVE, Urine Cannabinoids Screen NEGATIVE 09/27/17 04:52: Glucometer 118H Assessment/Plan Assessment/Plan Assessment/Plan abdominal pain periumbilical incarcerated hernia with manipulating it was able to get it reduced cough was able to get reduced instructed her on how to reduce on own and to make sure she could reduce it, if not she needs to be seen at that time. patient would benefit from repair after delivery elective. DEONNA HUGO DO Sep 27, 2017 19:39
== END 2017-09-27 10:32 | disposition home or self-care (01) ==
LOC: LDRP 04:23 → WSo 04:23
PROVIDERS: ATTEND Obstetrics & Gynecology
DX: K42.9 Umbilical hernia without obstruction or gangrene (principal); Z3A.35 35 weeks gestation of pregnancy; O99.333 Smoking (tobacco) complicating pregnancy, third trimester; F17.210 Nicotine dependence, cigarettes, uncomplicated; R05 Cough; Z88.0 Allergy status to penicillin; Z88.2 Allergy status to sulfonamides
CPT/HCPCS: 76805; 76819; 80306; 81000; 82962; 87081; 87088; 96374; 99213

== ENCOUNTER 2017-10-25 15:23 | Inpatient (IN) | payer MEDICAID ==
[~2017-10-25] VITALS: Ht 170.2 cm; Wt 110.4 kg
[2017-10-25] VITALS (33 sets, daily range): BP systolic 100–148; BP diastolic 55–87
[~2017-10-25 15:23] MED LIST changes: +CODE118S2 PO
[2017-10-25] MEDS ORDERED: NS IV 1000 ML 1,000 ML ONE (15:54)
[2017-10-25] MEDS ORDERED: NS IV 1000 ML 1,000 ML IV SCH (16:26)
[2017-10-25] MEDS ORDERED: MINERAL OIL CONCENTRATE 99.9% 15 ML UDC TOP PRN (16:30)
[2017-10-25 16:41] LABS: BASOPHILS # (AUTO) 0.1 10^3/uL (0.0-0.1); BASOPHILS % (AUTO) 0 % (0-10); EOSINOPHILS # (AUTO) 0.2 10^3/uL (0.0-0.3); EOSINOPHILS % (AUTO) 1 % (0-10); HEMATOCRIT 35 % (35-52); HEMOGLOBIN 12.2 G/DL (11.5-16.0); LYMPHOCYTES # (AUTO) 2.6 X 10^3 (1.0-4.0); LYMPHOCYTES % (AUTO) 14 % (12-44); MEAN CORPUSCULAR HEMOGLOBIN 31 PG (25-34); MEAN CORPUSCULAR HGB CONC 35 G/DL (32-36); MEAN CORPUSCULAR VOLUME 90 FL (80-99); MEAN PLATELET VOLUME 10.2 FL (7.4-10.4); MONOCYTES # (AUTO) 0.9 X 10^3 (0.0-1.0); MONOCYTES % (AUTO) 5 % (0-12); NEUTROPHILS % (AUTO) 80 % (42-75); PLATELET COUNT 485 10^3/uL (130-400); RED BLOOD COUNT 3.91 10^6/uL (4.35-5.85); RED CELL DISTRIBUTION WIDTH 13.5 % (10.0-14.5); WHITE BLOOD COUNT 18.8 10^3/uL (4.3-11.0)
--- NOTE | 2017-10-25 16:57 | History & Physical-OB ---
OB - Chief Complaint & HPI Date/Time Date of Admission: Date of Admission: Oct 25, 2017 at 3:23 pm Time Seen by Provider: 15:00 Chief Complaint/History OB-Reason for Admission/Chief: Induction of Labor Hx : 6 Hx Para: 4 Gestational Age in Weeks: 39 Other reason for admission: >39 weeks with GDM, PNC non compliance, Oligohydramnios Admission Nurse Assessment Rev: Yes History of Labs A pos Antibody neg RI RPR NR HBsAg NR HIV NR GC neg GBS unknown Allergies and Home Medications Allergies Coded Allergies: Penicillins (Verified Allergy, Unknown, 05/24/17) Sulfa (Sulfonamide Antibiotics) (Verified Allergy, Unknown, 05/24/17) cefaclor (Verified Allergy, Unknown, 05/24/17) Home Medications Vit No.124/Iron/FA 1 Each Tablet, 1 EACH PO DAILY, (Reported) Promethazine HCl/Codeine 118 Ml Syrup, 5 ML PO Q4H PRN for COUGH Prescribed by: REJI HARRISON on 09/27/17 0909 OB - History Hx of Present Care: Yes Ultrasounds: Abnormal US findings (oligohydramnios <5cm today) Obstetrical Complications: None Medical Complications: Other Patient Past Medical History Bilateral LE lymphedema OB - Admission Exam Physical Exam HEENT: NCAT Heart: Rhythm Normal Lungs: Clear Abdomen: Gravid Extremities: Normal Reflexes: Normal Cervical Dilatation: 3cm Effacement: 75% Station: -1 Membranes: Intact Heart Rate: 130's Accelerations: Accelerations Present Decelerations: No Decelerations Short Term Variability: Present Remed[employer] Consultant Variability: Average (6-25) Contractions on Admission: 6-10 Minutes Apart Intensity: Mild Noland Scoring Tool (Modified) Dilation (cm): 3-4cm (2) Effacement (%): 51-79% (2) Descent/Station: -1,0 (2) Cervix Consistency: Soft (2) Cervix Position: Anterior (2) Add 1 point for: Each previous vaginal delivery (1) Noland Score: 12 Labs Laboratory Tests Test 10/25/17 16:10 Range/Units OB - Assessment/Plan/Diagnosis Assessment Assessment: induction of labor Plan Plan: Induction Induction Method: per Pitocin Protocol Discharge Diagnosis Diagnosis: 32 yo @ 39 weeks >39 weeks with GDM PNC non compliance Oligohydramnios GBS unknown B/L LE Lymphedema GAB WARREN DO Oct 25, 2017 4:57 pm
[2017-10-25 17:53] LABS: AMPHETAMINE SCREEN, URINE NEGATIVE (NEGATIVE); BARBITURATE SCREEN URINE NEGATIVE (NEGATIVE); BENZODIAZEPINES SCREEN URINE NEGATIVE (NEGATIVE); CANNABINOID SCREEN, URINE POSITIVE (NEGATIVE); COCAINE SCREEN URINE NEGATIVE (NEGATIVE); METHADONE STAT NEGATIVE (NEGATIVE); METHAMPHETAMINE SCREEN URINE S NEGATIVE (NEGATIVE); OPIATE SCREEN URINE NEGATIVE (NEGATIVE); OXYCODONE STAT NEGATIVE (NEGATIVE); PROPOXYPHENE STAT NEGATIVE (NEGATIVE); TRICYCLIC ANTIDEPRESSANTS SCRE NEGATIVE (NEGATIVE)
[2017-10-25] MEDS ORDERED: INFLUENZA TRIvalent 2017-2018 0.5 ML/45 MCG SYR IM ONE (18:30)
[2017-10-25] MEDS ORDERED: SUFENTA 0.6MCG/ML BUPIVA 0.125 100 ML ONE (20:32)
[2017-10-25] MEDS ORDERED: LIDOCAINE PF 2% 5 ML (XYLOCAINE) VIAL ONE (20:58)
[2017-10-25] MEDS ORDERED: BUPIVACAINE 0.25% 30 ML (SENSORCAINE) VIAL ONE (20:58)
[2017-10-25] MEDS ORDERED: fentaNYL INJECTION 100 MCG/2 ML AMP ONE (20:59)
[2017-10-25] MEDS ORDERED: LACTATED RINGERS 1,000 ML IV ONE ×2 (21:28)
[2017-10-25] MEDS ORDERED: ONDANSETRON 4 MG/2 ML (SDV) Z0FRAN IV PRN (21:30)
[2017-10-25] MEDS ORDERED: EPIDURAL (SUFENTA 0.6MCG/ML BUPIVA 0.125%) 100 ML BAG EPI PRN (21:30)
[2017-10-25] MEDS ORDERED: NALOXONE 0.4 MG/ML 1 ML (NARCAN) VIAL IV PRN (21:30)
[2017-10-25] MEDS ORDERED: OXYTOCIN/NORMAL SALINE 500 ML IV ONE (21:42)
[2017-10-25] MEDS ORDERED: CATHETER FLUSH 10 ML SYR IV SCH (22:00)
[2017-10-25] MEDS ORDERED: ACHD5005 PO (22:25)
[2017-10-25] MEDS ORDERED: DOCU100C37 PO (22:25)
[2017-10-25] MEDS ORDERED: IBUP-1773 PO (22:25)
[2017-10-25] MEDS ORDERED: FERR325T18 PO (22:25)
--- NOTE | 2017-10-25 22:26 | Discharge Inst-Women's Service ---
Discharge Inst-Women's Serv Depart Medication/Instructions New, Converted or Re-Newed RX: RX on Chart Consults/Follow Up Additional Follow Up: Yes Orders/Referrals Dr. Warren in 6 weeks Activity Activity: Activity as Tolerated Driving Instructions: No Driving for 1 Week NO SMOKING: NO SMOKING Nothing Inside Vagina: No Douching, No Roland, No Tampons Diet Discharge Diet: No Restrictions Symptoms to Report to : Bleeding Excessive, Pain Increased, Fever Over 101 Degrees F, Vaginal Bleeding Increase, Questions/Concerns For Any Problems or Questions: Contact Your Physician Skin/Wound Care Bathing Instructions: Shower (x 2 weeks) GAB WARREN DO Oct 25, 2017 10:26 pm
[2017-10-25] MEDS ORDERED: BENZOCAINE/MENTHOL (DERMOPLAST) 56 ML CAN TP PRN (22:30)
[2017-10-25] MEDS: IBUPROFEN 600 MG (MOTRIN) TAB PO SCH (22:30)
[2017-10-25] MEDS ORDERED: TETANUS,DIPTH,PERTUSS P/F (BOOSTRIX) 0.5 ML VIAL IM ONE (22:30)
[2017-10-25] MEDS ORDERED: DIBUCAINE (NUPERCAINAL) 1% OINT 30 GM TOP PRN (22:30)
[2017-10-25] MEDS ORDERED: MEASLES,MUMPS,RUBELLA 1 EA INJ SQ ONE (22:30)
[2017-10-25] MEDS ORDERED: HYDROcodone/APAP 5 MG/325 MG (LORTAB) TAB PO PRN (22:30)
[2017-10-25] MEDS: OXYTOCIN/NORMAL SALINE 500 ML IV SCH (22:43)
--- NOTE | 2017-10-25 23:01 | OB Labor & Delivery Record ---
L&D History Date of Service Date of Service: Oct 25, 2017 History Expected Date of Delivery: Nov 01, 2017 Gestational Age in Weeks: 39 Hx : 6 Hx Para: 4 Complications Events: No Care (minimal care) Operative Indications (Cesarea: N/A-Vaginal Delivery Intrapartal Events: None L&D Stage1 Monitors and Tracing Monitor Mode: Internal Heart Rate: 130 Vital Signs VS - Last 72 Hours, by Label 10/25/17 10/25/17 10/25/17 10/25/17 16:28 17:15 17:30 17:45 Temp 99.5 99.5 Pulse 96 90 96 100 Resp 18 20 20 20 B/P (MAP) 113/61 (78) 142/62 (88) 133/63 (86) 131/67 (88) O2 Delivery Room Air Room Air Room Air Room Air 10/25/17 10/25/17 10/25/17 18:00 18:15 18:30 Pulse 90 80 100 Resp 20 20 20 B/P (MAP) 123/58 (79) 121/77 (92) 130/78 (95) O2 Delivery Room Air Room Air Room Air Rupture of Membranes Spontaneous Ruture of Membrane: No Amniotic Membrane Rupture Time: 1705 Amniotic Membrane Fluid Desc.: Clear Vaginal Bleeding Description: None Induction/Anesthesia Epidural Cath Placement - Time: 21:20 L&D Stage2 Monitors and Tracing Monitor Mode: Internal Heart Rate: 130 Monitor Accelerations: None Monitor Decelerations: Variable Senior Care Variability: Average (6-10) Short Term Variability: Present Position: Right Occiput Anterior Presentation: Vertex Cord Descript/Complications Cord Vessel Description: 3 Vessels Delivery Type Delivery Method: Spontaneous Vaginal Anterior Shoulder: Left Episiotomy/Perineal Laceration Laceraction(s)/Extensions: No Condition of Delivery 1 minute Comment: 8 5 minute Comment: 9 Notes Live female weight 6lbs 6oz Condition of Condition of Infant: Living Exam: No Observed Abnormalities Resuscitation Resuscitation: N/A - Spontaneous Resp L&D Stage3 Stage Three Stage III Date: Oct 25, 2017 Stage III Time: 23:00 Pictocin Pitocin Administration Comment: 30 mu wide open at delivery of placenta Placenta Delivery Placenta Delivery: Spontaneous Delivery Summary Summary Estimated blood loss (mL): 300 300 mL Attending at delivery: Fenech, Gab DO Condition of Delivery Examined: Cervix Examined, Uterus Explored Post Hemorrhage: No Condition of Mother stable Condition of Infant (s) stable GAB WARREN DO Oct 25, 2017 11:01 pm
[2017-10-26] VITALS (9 sets, daily range): BP systolic 103–138; BP diastolic 59–83
[2017-10-26] MEDS: OXYTOCIN/NORMAL SALINE 500 ML IV SCH (01:05)
[2017-10-26] MEDS: WITCH HAZEL(TUCKS) 40 EA JAR TOP PRN (03:00)
[2017-10-26] MEDS: IBUPROFEN 600 MG (MOTRIN) TAB PO SCH ×3 (05:24→18:17)
[2017-10-26] MEDS ORDERED: CATHETER FLUSH 10 ML SYR IV SCH (06:00)
[2017-10-26 06:01] LABS: BASOPHILS % (AUTO) 0 % (0-10); EOSINOPHILS # (AUTO) 0.2 10^3/uL (0.0-0.3); EOSINOPHILS % (AUTO) 1 % (0-10); HEMATOCRIT 31 % (35-52); HEMOGLOBIN 10.7 G/DL (11.5-16.0); LYMPHOCYTES # (AUTO) 2.9 X 10^3 (1.0-4.0); LYMPHOCYTES % (AUTO) 15 % (12-44); MEAN CORPUSCULAR HEMOGLOBIN 31 PG (25-34); MEAN CORPUSCULAR HGB CONC 34 G/DL (32-36); MEAN CORPUSCULAR VOLUME 91 FL (80-99); MONOCYTES # (AUTO) 0.7 X 10^3 (0.0-1.0); MONOCYTES % (AUTO) 3 % (0-12); NEUTROPHILS # (AUTO) 15.2 X 10^3 (1.8-7.8); NEUTROPHILS % (AUTO) 81 % (42-75); PLATELET COUNT 414 10^3/uL (130-400); RED BLOOD COUNT 3.42 10^6/uL (4.35-5.85); RED CELL DISTRIBUTION WIDTH 13.6 % (10.0-14.5); WHITE BLOOD COUNT 18.9 10^3/uL (4.3-11.0)
--- NOTE | 2017-10-26 07:37 | Anesthesia-Regional Post-Op ---
Regional Patient Condition Mental Status: Alert, Oriented x3 Circulation: Same as Pre-Op Headache: Absent Sensation: Full Recovery Motor Block: Absent Post Op Complications Complications None Follow Up Care/Instructions Patient Instructions None needed. Anesthesia/Patient Condition Patient is doing well, no complaints, stable vital signs, no apparent adverse anesthesia problems. No complications reported per nursing. MANNIE SUMMERS CRNA Oct 26, 2017 07:37
--- NOTE | 2017-10-26 08:50 | Postpartum Progress Note ---
Note Note Day # 1 Subjective: Patient is without complaints. Ambulating, voiding. Tolerating a regular diet without nausea or vomiting. Normal lochia. Pain is well controlled with oral pain medications. Objective: Vital Sign - Last 24 Hours 10/25/17 10/25/17 10/25/17 10/25/17 16:28 17:15 17:30 17:45 Temp 99.5 99.5 Pulse 96 90 96 100 Resp 18 20 20 20 B/P (MAP) 113/61 (78) 142/62 (88) 133/63 (86) 131/67 (88) O2 Delivery Room Air Room Air Room Air Room Air 10/25/17 10/25/17 10/25/17 10/25/17 18:00 18:15 18:30 19:15 Temp 99.0 Pulse 90 80 100 83 Resp 20 20 20 20 B/P (MAP) 123/58 (79) 121/77 (92) 130/78 (95) 112/55 (74) O2 Delivery Room Air Room Air Room Air Room Air 10/25/17 10/25/17 10/25/17 10/25/17 19:30 19:45 20:00 20:15 Pulse 73 78 84 76 Resp 20 18 20 18 B/P (MAP) 100/55 (70) 102/58 (73) 125/58 (80) 113/55 (74) O2 Delivery Room Air Room Air Room Air Room Air 10/25/17 10/25/17 10/25/17 10/25/17 20:30 20:45 21:00 21:10 Pulse 96 82 100 119 Resp 18 20 22 22 B/P (MAP) 133/87 (102) 119/56 (77) 130/58 (82) 142/77 (98) Pulse Ox 97 O2 Delivery Room Air Room Air Room Air Room Air 10/25/17 10/25/17 10/25/17 10/25/17 21:15 21:18 21:23 21:30 Pulse 109 93 91 90 Resp 22 20 20 18 B/P (MAP) 143/76 (98) 134/66 (88) 127/70 (89) 145/73 (97) Pulse Ox 97 97 99 98 O2 Delivery Room Air Room Air Room Air Room Air 10/25/17 10/25/17 10/25/17 10/25/17 21:35 21:40 21:45 21:55 Pulse 82 82 81 90 Resp 20 18 18 18 B/P (MAP) 136/62 (86) 148/66 (93) 121/59 (79) 127/58 (81) Pulse Ox 98 98 97 96 O2 Delivery Room Air Room Air Room Air Room Air 10/25/17 10/25/17 10/25/17 10/25/17 22:00 22:05 22:10 22:15 Temp 98.4 Pulse 89 91 90 83 Resp 18 18 18 18 B/P (MAP) 131/73 (92) 129/59 (82) 119/63 (81) 119/70 (86) Pulse Ox 97 96 97 96 O2 Delivery Room Air Room Air Room Air Room Air 10/25/17 10/25/17 10/25/17 10/25/17 22:20 22:30 22:45 23:15 Pulse 90 121 101 84 Resp 18 18 18 18 B/P (MAP) 111/64 (80) 136/86 (103) 122/56 (78) Pulse Ox 95 O2 Delivery Room Air Room Air Room Air Room Air 10/25/17 10/25/17 10/26/17 10/26/17 23:30 23:45 00:00 00:15 Pulse 88 86 108 90 Resp 18 18 18 18 B/P (MAP) 121/56 (77) 123/58 (79) 130/79 (96) 124/59 (80) O2 Delivery Room Air Room Air Room Air Room Air 10/26/17 10/26/17 10/26/17 10/26/17 00:30 00:45 01:30 05:20 Temp 98.4 98.0 97.4 Pulse 88 90 104 104 Resp 18 18 18 18 B/P (MAP) 123/61 (81) 129/62 (84) 138/63 (88) 103/63 (76) Pulse Ox 98 O2 Delivery Room Air Room Air Room Air Room Air Intake and Output 10/25/17 10/25/17 10/26/17 15:00 23:00 07:00 Intake Total 1000 ml 1500 ml Balance 1000 ml 1500 ml Laboratory Tests Test 10/25/17 16:10 10/25/17 16:30 10/26/17 05:20 Range/Units White Blood Count 18.8 H 18.9 H 4.3-11.0 10^3/uL Red Blood Count 3.91 L 3.42 L 4.35-5.85 10^6/uL Hemoglobin 12.2 10.7 L 11.5-16.0 G/DL Hematocrit 35 31 L 35-52 % Mean Corpuscular Volume 90 91 80-99 FL Mean Corpuscular Hemoglobin 31 31 25-34 PG Mean Corpuscular Hemoglobin Concent 35 34 32-36 G/DL Red Cell Distribution Width 13.5 13.6 10.0-14.5 % Platelet Count 485 H 414 H 130-400 10^3/uL Mean Platelet Volume 10.2 10.0 7.4-10.4 FL Neutrophils (%) (Auto) 80 H 81 H 42-75 % Lymphocytes (%) (Auto) 14 15 12-44 % Monocytes (%) (Auto) 5 3 0-12 % Eosinophils (%) (Auto) 1 1 0-10 % Basophils (%) (Auto) 0 0 0-10 % Neutrophils # (Auto) 15.0 H 15.2 H 1.8-7.8 X 10^3 Lymphocytes # (Auto) 2.6 2.9 1.0-4.0 X 10^3 Monocytes # (Auto) 0.9 0.7 0.0-1.0 X 10^3 Eosinophils # (Auto) 0.2 0.2 0.0-0.3 10^3/uL Basophils # (Auto) 0.1 0.0 0.0-0.1 10^3/uL Urine Opiates Screen NEGATIVE NEGATIVE Urine Oxycodone Screen NEGATIVE NEGATIVE Urine Methadone Screen NEGATIVE NEGATIVE Urine Propoxyphene Screen NEGATIVE NEGATIVE Urine Barbiturates Screen NEGATIVE NEGATIVE Ur Tricyclic Antidepressants Screen NEGATIVE NEGATIVE Urine Phencyclidine Screen NEGATIVE NEGATIVE Urine Amphetamines Screen NEGATIVE NEGATIVE Urine Methamphetamines Screen NEGATIVE NEGATIVE Urine Benzodiazepines Screen NEGATIVE NEGATIVE Urine Cocaine Screen NEGATIVE NEGATIVE Urine Cannabinoids Screen POSITIVE H NEGATIVE Physical Exam: General - Alert and oriented, no apparent distress Abdomen - Soft, appropriately tender to palpation, non-distended, fundus firm at umbilicus Extremities - no edema, negative Marilia's bilaterally Assessment: PPD 1 Acute blood loss anemia THC use in Bilateral le lymphedema Ventral hernia Plan: Routine care. Encourage breast feeding. Encourage ambulation. Ferrous sulfate supplementation. Plan for discharge tomorrow, setting up follow up for hernia and lymphedema today. Vitals - Labs Vital Signs - I&O Vital Signs Date Time Temp Pulse Resp B/P (MAP) Pulse Ox O2 Delivery O2 Flow Rate FiO2 10/26/17 05:20 97.4 104 18 103/63 (76) 98 Room Air 10/26/17 01:30 98.0 104 18 138/63 (88) Room Air 10/26/17 00:45 98.4 90 18 129/62 (84) Room Air 10/26/17 00:30 88 18 123/61 (81) Room Air 10/26/17 00:15 90 18 124/59 (80) Room Air 10/26/17 00:00 108 18 130/79 (96) Room Air 10/25/17 23:45 86 18 123/58 (79) Room Air 10/25/17 23:30 88 18 121/56 (77) Room Air 10/25/17 23:15 84 18 122/56 (78) Room Air 10/25/17 22:45 101 18 136/86 (103) Room Air 10/25/17 22:30 121 18 Room Air 10/25/17 22:20 90 18 111/64 (80) 95 Room Air 10/25/17 22:15 83 18 119/70 (86) 96 Room Air 10/25/17 22:10 90 18 119/63 (81) 97 Room Air 10/25/17 22:05 91 18 129/59 (82) 96 Room Air 10/25/17 22:00 98.4 89 18 131/73 (92) 97 Room Air 10/25/17 21:55 90 18 127/58 (81) 96 Room Air 10/25/17 21:45 81 18 121/59 (79) 97 Room Air 10/25/17 21:40 82 18 148/66 (93) 98 Room Air 10/25/17 21:35 82 20 136/62 (86) 98 Room Air 10/25/17 21:30 90 18 145/73 (97) 98 Room Air 10/25/17 21:23 91 20 127/70 (89) 99 Room Air 10/25/17 21:18 93 20 134/66 (88) 97 Room Air 10/25/17 21:15 109 22 143/76 (98) 97 Room Air 10/25/17 21:10 119 22 142/77 (98) 97 Room Air 10/25/17 21:00 100 22 130/58 (82) Room Air 10/25/17 20:45 82 20 119/56 (77) Room Air 10/25/17 20:30 96 18 133/87 (102) Room Air 10/25/17 20:15 76 18 113/55 (74) Room Air 10/25/17 20:00 84 20 125/58 (80) Room Air 10/25/17 19:45 78 18 102/58 (73) Room Air 10/25/17 19:30 73 20 100/55 (70) Room Air 10/25/17 19:15 99.0 83 20 112/55 (74) Room Air 10/25/17 18:30 100 20 130/78 (95) Room Air 10/25/17 18:15 80 20 121/77 (92) Room Air 10/25/17 18:00 90 20 123/58 (79) Room Air 10/25/17 17:45 100 20 131/67 (88) Room Air 10/25/17 17:30 99.5 96 20 133/63 (86) Room Air 10/25/17 17:15 90 20 142/62 (88) Room Air 10/25/17 16:28 99.5 96 18 113/61 (78) Room Air I & O 10/26/17 07:00 Intake Total 2500 ml Balance 2500 ml Labs Laboratory Tests 10/25/17 16:10: White Blood Count 18.8H, Red Blood Count 3.91L, Hemoglobin 12.2, Hematocrit 35, Mean Corpuscular Volume 90, Mean Corpuscular Hemoglobin 31, Mean Corpuscular Hemoglobin Concent 35, Red Cell Distribution Width 13.5, Platelet Count 485H, Mean Platelet Volume 10.2, Neutrophils (%) (Auto) 80H, Lymphocytes (%) (Auto) 14 , Monocytes (%) (Auto) 5, Eosinophils (%) (Auto) 1, Basophils (%) (Auto) 0, Neutrophils # (Auto) 15.0H, Lymphocytes # (Auto) 2.6, Monocytes # (Auto) 0.9, Eosinophils # (Auto) 0.2, Basophils # (Auto) 0.1 10/25/17 16:30: Urine Opiates Screen NEGATIVE, Urine Oxycodone Screen NEGATIVE, Urine Methadone Screen NEGATIVE, Urine Propoxyphene Screen NEGATIVE, Urine Barbiturates Screen NEGATIVE, Ur Tricyclic Antidepressants Screen NEGATIVE, Urine Phencyclidine Screen NEGATIVE, Urine Amphetamines Screen NEGATIVE, Urine Methamphetamines Screen NEGATIVE, Urine Benzodiazepines Screen NEGATIVE, Urine Cocaine Screen NEGATIVE, Urine Cannabinoids Screen POSITIVEH 10/26/17 05:20: White Blood Count 18.9H, Red Blood Count 3.42L, Hemoglobin 10.7L, Hematocrit 31L , Mean Corpuscular Volume 91, Mean Corpuscular Hemoglobin 31, Mean Corpuscular Hemoglobin Concent 34, Red Cell Distribution Width 13.6, Platelet Count 414H, Mean Platelet Volume 10.0, Neutrophils (%) (Auto) 81H, Lymphocytes (%) (Auto) 15 , Monocytes (%) (Auto) 3, Eosinophils (%) (Auto) 1, Basophils (%) (Auto) 0, Neutrophils # (Auto) 15.2H, Lymphocytes # (Auto) 2.9, Monocytes # (Auto) 0.7, Eosinophils # (Auto) 0.2, Basophils # (Auto) 0.0 GAB WARREN DO Oct 26, 2017 8:50 am
[2017-10-26] MEDS: DOCUSATE SODIUM 100 MG (COLACE) CAP PO SCH (09:14)
[2017-10-26] MEDS: PRENATAL VITAMIN 1 EA TAB PO SCH (09:14)
[2017-10-26] MEDS: FERROUS SULF 325 MG (IRON) TAB PO SCH (09:15)
--- NOTE | 2017-10-26 13:25 | Occ Therapy Progress Note ---
Therapy Progress Note OT order received for lymphedema therapy. This OT consulted lymphedema outpt therapist, as well as OB nurse. Outpt. therapist recommends that pt. follow up with her after hospital discharge, as it is not safe to bandage legs and then discharge with no particular plan. This is conveyed to nursing and nursing given outpt. therapist's name and phone number to give to pt. Adalid Dockery, . Thank you for the consult. MARYA DE SANTIAGO OT Oct 26, 2017 13:25
[2017-10-27] VITALS: BP 120/73
[2017-10-27] MEDS: DOCUSATE SODIUM 100 MG (COLACE) CAP PO SCH ×2 (00:10→09:55)
[2017-10-27] MEDS: IBUPROFEN 600 MG (MOTRIN) TAB PO SCH ×3 (00:10→12:49)
[2017-10-27 06:12] VITALS: BP 127/81
--- NOTE | 2017-10-27 08:52 | Postpartum Progress Note ---
Note Note Day # 2 Subjective: Patient is without complaints. Ambulating, voiding. Tolerating a regular diet without nausea or vomiting. Normal lochia. Pain is well controlled with oral pain medications. Objective: Vital Sign - Last 24 Hours 10/26/17 10/26/17 10/26/17 10/27/17 09:16 12:32 18:16 00:00 Temp 96.4 98.0 97.6 Pulse 96 74 78 81 Resp 18 18 18 18 B/P (MAP) 123/79 (94) 126/83 (97) 135/81 (99) 120/73 (89) Pulse Ox 97 97 97 97 O2 Delivery Room Air Room Air 10/27/17 06:12 Temp 98.2 Pulse 65 Resp 18 B/P (MAP) 127/81 (96) Pulse Ox 97 Physical Exam: General - Alert and oriented, no apparent distress Abdomen - Soft, appropriately tender to palpation, non-distended, fundus firm at umbilicus Extremities - no edema, negative Marilia's bilaterally Assessment: PPD 2 Acute blood loss anemia THC use in Bilateral le lymphedema Ventral hernia Plan: Routine care. Encourage breast feeding. Encourage ambulation. Ferrous sulfate supplementation. Plan for discharge today Vitals - Labs Vital Signs - I&O Vital Signs Date Time Temp Pulse Resp B/P (MAP) Pulse Ox O2 Delivery O2 Flow Rate FiO2 10/27/17 06:12 98.2 65 18 127/81 (96) 97 10/27/17 00:00 81 18 120/73 (89) 97 10/26/17 18:16 97.6 78 18 135/81 (99) 97 10/26/17 12:32 98.0 74 18 126/83 (97) 97 Room Air 10/26/17 09:16 96.4 96 18 123/79 (94) 97 Room Air GAB WARREN DO Oct 27, 2017 8:52 am
[2017-10-27] MEDS: PRENATAL VITAMIN 1 EA TAB PO SCH (09:55)
[2017-10-27] MEDS: FERROUS SULF 325 MG (IRON) TAB PO SCH (09:55)
[2017-10-27 12:48] VITALS: BP 139/91
== END 2017-10-27 13:55 | disposition home or self-care (01) | DRG 775 ==
LOC: LDRP 15:23
PROVIDERS: ADMIT Obstetrics & Gynecology; ATTEND Obstetrics & Gynecology
PROC: 10E0XZZ Delivery of Products of Conception, External Approach (ICD-10-PCS; principal; 2017-10-25)
PROC: 3E033VJ Introduction of Other Hormone into Peripheral Vein, Percutaneous Approach (ICD-10-PCS; 2017-10-25)
DX: O41.03X0 Oligohydramnios, third trimester, not applicable or unspecified (principal); O24.429 Gestational diabetes mellitus in childbirth, unspecified control; I89.0 Lymphedema, not elsewhere classified; O90.81 Anemia of the puerperium; D62 Acute posthemorrhagic anemia; F12.90 Cannabis use, unspecified, uncomplicated; O99.62 Diseases of the digestive system complicating childbirth; K43.9 Ventral hernia without obstruction or gangrene; Z3A.39 39 weeks gestation of pregnancy; Z37.0 Single live birth; Z91.19 Patient's noncompliance with other medical treatment and regimen; Z88.0 Allergy status to penicillin; Z88.2 Allergy status to sulfonamides
CPT/HCPCS: 36415; 80306; 85025; 86850; 86900; 86901